=== PATIENT | male | born 1950 ===

== ENCOUNTER 2024-04-19 01:52 | Outpatient (CLI) | payer OTHER, SELFPAY ==
--- NOTE | 2024-04-19 | DI.RAD_ITS ---
Exam(s) XR CHEST 2V PA LATERAL EXAM: XR CHEST 2V PA LATERAL CLINICAL HISTORY: ASTHMA [id number] TECHNIQUE: 2D digital imaging was performed. Two views. COMPARISON: No exams were available for comparison FINDINGS: HEART: Normal size. Aorta: Not dilated. PULMONARY VASCULATURE: Normal. MEDIASTINUM: Unremarkable. LUNGS: Hyperinflated but clear. PLEURAL SPACE: No pleural effusion or pneumothorax. BONE:Unremarkable for age. SOFT TISSUES: Unremarkable. IMPRESSION: No acute abnormality. DATA REPOSITORY: RADIATION DOSE DELIVERED:
== END 2024-04-19 02:12 ==
LOC: DI 01:52
PROVIDERS: Visit Provider Chiropractor
DX: J45.909 Unspecified asthma, uncomplicated (principal)
CPT/HCPCS: 71046

== ENCOUNTER 2024-04-19 02:51 | Outpatient (CLI) | payer OTHER, SELFPAY ==
[2024-04-19] MEDS: Inhaler, Assist Device 1 EACH MC (11:49)
[2024-04-19] MEDS: Levalbuterol HFA 15 GM INH 4 PUFF IH (11:49)
--- NOTE | 2024-04-25 13:58 | W.PFT ---
Date of service: 04/19/24 Time of Service: 08:03 Pulmonary Function Test Result Indications: Disability Interpretation Spirometry: No airflow limitation. Significant bronchodilator response. Impression No airflow obstruction and a positive bronchidilator response. Clinical Correlation therefore is recommended.
== END 2024-04-19 02:52 | disposition home or self-care (01) ==
PROVIDERS: Visit Provider Student in an Organized Health Care Education/Training Program
DX: J45.909 Unspecified asthma, uncomplicated (principal)
CPT/HCPCS: 94060